=== PATIENT | female | born 1980 | race Caucasian/White ===

== ENCOUNTER → 2017-10-08 | Outpatient (CLI) | payer OTHER ==
[~2017-10-08] MED LIST: ONDA4TAB7 SL; PROM25SU28 PR
== END | disposition home or self-care (01) ==
LOC: C.LABSPEC 14:38
PROVIDERS: ATTEND Urology
DX: N20.0 Calculus of kidney (principal)

== ENCOUNTER → 2017-12-02 | Outpatient (CLI) | payer OTHER ==
--- NOTE | 2017-12-02 09:59 | DIAGNOSTIC IMAGING REPORT ---
KUB CLINICAL HISTORY: G35 Multiple [id number] NEPHROLITHIASIS COMPARISON STUDY: Outside CT scan dated 09/29/2017 FINDINGS: The right renal shadow is largely obscured by overlying bowel gas and fecal material. A few punctate left renal calculi are suspected. There is a left pelvic basin calcification which is felt to represent a phlebolith. There is scattered stool within the colon. There is no pathologic bowel dilatation. IMPRESSION: 1. Suspected punctate left renal calculi 2. The previously identified right renal calculi are not visualized however the right kidney is largely obscured. Electronically signed by: Kvng Karimi M.D. 12/02/2017 9:58 AM Dictated Date/Time: 12/02/2017 9:57 AM
== END | disposition home or self-care (01) ==
LOC: C.RAD 09:03
PROVIDERS: ATTEND Urology
DX: G35 Multiple sclerosis (principal)